=== PATIENT | male | born 1950 ===

== ENCOUNTER 2023-04-30 07:47 | Day surgery (SDC) | payer MEDICARE, BC ==
[~2023-04-30] VITALS: Ht 172.7 cm; Wt 84.2 kg
--- NOTE | 2023-04-30 08:33 | NUR ---
04/30/23 0813 MARIELA BLUE PT ALERT AND ORIENTED, CALM AND COOPERATIVE WITH CARE.
[2023-04-30 10:22] VITALS: BP 129/78
== END 2023-04-30 10:16 | disposition home or self-care (01) ==
LOC: ORSCSDS 07:47
PROVIDERS: Specialist
PROC: 0DBM8ZX Excision of Descending Colon, Via Natural or Artificial Opening Endoscopic, Diagnostic (ICD-10-PCS; principal; 2023-04-30 09:45)
DX: Z12.11 Encounter for screening for malignant neoplasm of colon (principal); D12.5 Benign neoplasm of sigmoid colon; K57.30 Diverticulosis of large intestine without perforation or abscess without bleeding; K64.8 Other hemorrhoids; G47.33 Obstructive sleep apnea (adult) (pediatric); E78.5 Hyperlipidemia, unspecified; Z80.0 Family history of malignant neoplasm of digestive organs; Z87.891 Personal history of nicotine dependence
CPT/HCPCS: 88305; J2704; J7120

== ENCOUNTER 2025-02-25 07:43 | Day surgery (SDC) | payer MEDICARE, BC ==
[~2025-02-25] VITALS: Ht 172.7 cm; Wt 85.7 kg
[~2025-02-25 07:43] MED LIST: Balanced Salt Epinephrine Irrigation Solution 500 mL IR SCH; Diazepam 5 MG Tab PO PRN; Diazepam 5 MG Tab PO SCH; Lidocaine HCl/Pf 1% 5 ML VIAL ONE; Lidocaine HCl/Pf 1% 5 ML VIAL XX SCH; Moxifloxacin HCL 0.5 MG/0.1 ML 0.4MLSYR RIGHTEYE SCH; Ondansetron 4 MG SoluTab MM PRN; PHENYLEPHRINE\\TROPICAMIDE\\TETRACAINE OPHTHALMIC DILATING SOLN RIGHTEYE PRN; Povidone-Iodine 450 DROP/30 ML Solution ONE; Povidone-Iodine 450 DROP/30 ML Solution RIGHTEYE SCH; Tetracaine HCl/Pf 0.5% Opth Soln 4 ml ONE; Triamcinolone Inj Susp 40 MG / ML 1ML Vial INJ SCH; Triamcinolone Inj Susp 40 MG / ML 1ML Vial ONE
[2025-02-25] MEDS ORDERED: Diazepam 10 MG Tab ONE (07:46)
--- NOTE | 2025-02-25 08:07 | NUR ---
02/25/25 0807 Neela Thomas 0806: INITIAL ANXIETY 11/30. 10 MG PO VALIUM GIVEN PER ORDERS. PULSE OXIMETER IN PLACE TO MONITOR OXYGEN SATURATION, CALL LIGHT WITHIN REACH.
--- NOTE | 2025-02-25 09:03 | NUR ---
02/25/25 0903 Angela Garcia BP 158/95, HR 68, SPO2-97% 10L BLOW BY O2
[2025-02-25 09:21] VITALS: BP 148/94
== END 2025-02-25 09:37 | disposition home or self-care (01) ==
LOC: ORSCSDS 07:43
PROVIDERS: Ophthalmology
PROC: 08RJ3JZ Replacement of Right Lens with Synthetic Substitute, Percutaneous Approach (ICD-10-PCS; principal; 2025-02-25 09:00)
DX: H25.813 Combined forms of age-related cataract, bilateral (principal); H04.123 Dry eye syndrome of bilateral lacrimal glands; Z87.891 Personal history of nicotine dependence
CPT/HCPCS: A9270; J2003; J3301; V2632